=== PATIENT | male | born 2000 | race Caucasian/White ===

== ENCOUNTER 2019-11-14 18:28 | Emergency (ER) | payer OTHER ==
--- NOTE | 2019-11-14 18:54 | ED Physician Documentation ---
History of Present Illness - Stated complaint Stated Complaint: BODY ACHES/COUGH - Chief complaint Chief Complaint: Fever - Additonal information Additional information: This is a 19-year-old male who is otherwise healthy presents with, fever, body aches, and an episode of vomiting. He does not take any Tylenol or ibuprofen recently. He denies shortness of breath. After some retching and vomiting he did have a small amount of blood in his emesis, that was around 1 to 2 hours ago. He has not had any since. He denies abdominal pain. No hemoptysis. Review of Systems Constitutional: reports: Fever Respiratory: reports: Cough GI: reports: Vomiting. denies: Abdominal Pain Skin: denies: Rash PD PAST MEDICAL HISTORY - Past Medical History Past Medical History: Yes GI: GERD - Past Surgical History Past Surgical History: No - Present Medications Home Medications: Ambulatory Orders Medication Instructions Recorded Confirmed Benzonatate [Tessalon Perle] 100 - 200 mg PO TID PRN #30 capsule 11/14/19 Omeprazole 20 mg PO DAILY 11/14/19 11/14/19 Ondansetron Odt [Zofran] 4 mg TL Q6H PRN #10 tablet 11/14/19 - Allergies Allergies/Adverse Reactions: Allergies Allergy/AdvReac Type Severity Reaction Status Date / Time No Known Drug Allergies Allergy Verified 11/14/19 18:31 - Social History Does the pt smoke?: Yes Smoking Status: Current every day smoker Does the pt drink ETOH?: Yes Does the pt have substance abuse?: No - Immunizations Immunizations are current?: Yes PD ED PE NORMAL - General General: Other (Nontoxic-appearing) - HEENT HEENT: Atraumatic - Neck Neck: Supple, no meningeal sign - Cardiac Cardiac: Other (Tachycardic, regular rhythm) - Respiratory Respiratory: No respiratory distress, Clear bilaterally, Other (Intermittent cough) - Abdomen Abdomen: Soft, Non tender, Non distended - Extremities Extremities: No deformity - Neuro Neuro: Alert and oriented X 3 - Psych Psych: Normal mood, Normal affect Results - Vitals Vitals: Vital Signs - 24 hr 11/14/19 11/14/19 18:32 21:02 Temperature 38.4 C H 37.3 C Heart Rate 120 H 91 Respiratory 20 16 Rate Blood Pressure 121/84 H 117/72 O2 Saturation 98 96 Oxygen O2 Source Room air - Labs Labs: Laboratory Tests 11/14/19 11/14/19 11/14/19 18:40 20:14 20:14 WBC 6.6 RBC 5.29 Hgb 16.3 Hct 45.8 MCV 86.6 MCH 30.8 MCHC 35.6 RDW 11.6 L Plt Count 172 MPV 9.3 Neut # (Auto) 4.3 Lymph # (Auto) 0.8 L [place] # (Auto) 1.4 H Eos # (Auto) 0.0 Baso # (Auto) 0.0 Absolute Nucleated RBC 0.00 Nucleated RBC % 0.0 Sodium 137 Potassium 3.8 Chloride 96 L Carbon Dioxide 29 Anion Gap 12.0 BUN 12 Creatinine 1.0 Estimated GFR (MDRD) 95 Glucose 89 Lactic Acid Calcium 9.4 Total Bilirubin 1.3 H AST 22 ALT 33 Alkaline Phosphatase 53 Total Protein 7.9 Albumin 4.6 Globulin 3.3 Albumin/Globulin Ratio 1.4 Lipase 26 Influenza A (Rapid) Negative Influenza B (Rapid) Negative 11/14/19 20:14 WBC RBC Hgb Hct MCV MCH MCHC RDW Plt Count MPV Neut # (Auto) Lymph # (Auto) [place] # (Auto) Eos # (Auto) Baso # (Auto) Absolute Nucleated RBC Nucleated RBC % Sodium Potassium Chloride Carbon Dioxide Anion Gap BUN Creatinine Estimated GFR (MDRD) Glucose Lactic Acid 1.1 Calcium Total Bilirubin AST ALT Alkaline Phosphatase Total Protein Albumin Globulin Albumin/Globulin Ratio Lipase Influenza A (Rapid) Influenza B (Rapid) PD MEDICAL DECISION MAKING - ED course ED course: Patient arrives, he is febrile and tachycardic but he is nontoxic-appearing. His body aches, fever, cough are suggestive of influenza or another related viral illness. His lungs are clear, oxygen saturation is excellent, and he is not having chest pain, pneumonia is highly unlikely especially given his symptoms only present for 2 days. Influenza swabs are negative. His blood counts are unremarkable, and his electrolytes also are unremarkable. After liter of fluids, Zofran Tylenol and ibuprofen, patient is feeling better, his heart rate is in normal range, and his oxygen saturation remains excellent. His lactic acid was normal, and though he met SIRS criteria when he arrived this does appear to be a viral illness and not sepsis. He has a benign abdomen, no signs of more serious infection at this time. Regarding his blood in the vomit, this is probably a Samantha-Sawyer tear given that he had one isolated episode after multiple episodes of retching and vomiting. He has had no further vomiting or hematemesis. I discussed supportive care, prescribed him Zofran and Tessalon Perles, reviewed return precautions with any worsening, and reviewed primary care follow-up. Patient agreed and was discharged home Departure - Departure Disposition: 01 Home, Self Care Clinical Impression: Viral syndrome Condition: Good Instructions: ED Viral Syndrome Follow-Up: CORRINE DAVENPORT [Primary Care Provider] - Prescriptions: Benzonatate [Tessalon Perle] 100 - 200 mg PO TID PRN #30 capsule PRN Reason: Cough Ondansetron Odt [Zofran] 4 mg TL Q6H PRN #10 tablet PRN Reason: Nausea / Vomiting Comments: You appear to have an illness similar to the flu though your rapid flu test was negative today. Your labs are reassuring, please take Tylenol and ibuprofen for fever and pain, you may try the Tessalon Perles for cough and the Zofran for nausea. If you are having worsening symptoms such as persistent vomiting despite the Zofran, difficulty breathing, coughing up blood, or other concerning symptoms return to the emergency department. Discharge Date/Time: 11/14/19 21:04
[2019-11-14] MEDS ORDERED: ACETAMINOPHEN 500 MG TABLET PO STA (19:06)
[2019-11-14] MEDS ORDERED: ONDANSETRON ODT 4 MG TABLET TL STA (19:06)
[2019-11-14] MEDS ORDERED: IBUPROFEN 600 MG TABLET PO STA (19:06)
[2019-11-14] MEDS ORDERED: SODIUM CHLORIDE 0.9% 1,000 ML IV ONE (19:51)
[2019-11-14 20:21] LABS: BASOPHILS % (AUTO) 0.6 %; EOSINOPHILS % (AUTO) 0.5 %; HGB - HEMOGLOBIN 16.3 g/dL (14.0-18.0); LYMPHOCYTES # (AUTO) 0.8 10^3/uL (1.5-3.5); LYMPHOCYTES % (AUTO) 12.5 %; MEAN CORPUSCULAR HEMOGLOBIN 30.8 pg (27.0-31.0); MEAN CORPUSCULAR HGB CONC 35.6 g/dL (32.0-36.0); MEAN CORPUSCULAR VOLUME 86.6 fL (80.0-94.0); MEAN PLATELET VOLUME 9.3 fL (7.4-11.4); MONOCYTES # (AUTO) 1.4 10^3/uL (0.0-1.0); MONOCYTES % (AUTO) 20.6 %; NEUTROPHILS # (AUTO) 4.3 10^3/uL (1.5-6.6); NEUTROPHILS % (AUTO) 65.3 %; PLT - PLATELET COUNT 172 10^3/uL (130-450); RED BLOOD COUNT 5.29 10^6/uL (4.70-6.10); RED CELL DISTRIBUTION WIDTH 11.6 % (12.0-15.0); WHITE BLOOD COUNT 6.6 x10^3/uL (4.8-10.8)
[2019-11-14 20:33] LABS: ALBUMIN 4.6 g/dL (3.2-5.5); ALBUMIN/GLOBULIN RATIO 1.4 (1.0-2.2); BILIRUBIN,TOTAL 1.3 mg/dL (0.2-1.0); CALCIUM 9.4 mg/dL (8.5-10.3); TOTAL PROTEIN 7.9 g/dL (6.7-8.2)
[2019-11-14 21:02] VITALS: BP 117/72
== END 2019-11-14 21:04 | disposition home or self-care (01) ==
LOC: ED 18:28
DX: B34.9 Viral infection, unspecified (principal); K92.0 Hematemesis; F17.200 Nicotine dependence, unspecified, uncomplicated
CPT/HCPCS: 80053; 83605; 83690; 85025; 87275; 87276; 96360; 99283; A9270; Q0162; 36415

== ENCOUNTER 2019-11-17 08:41 | Emergency (ER) | payer OTHER ==
[2019-11-17] MEDS ORDERED: DEXAMETHASONE 10 MG/ML VIAL PO STA (10:10)
[2019-11-17] MEDS ORDERED: BENZONATATE 100 MG CAPSULE PO STA (10:10)
[2019-11-17] MEDS ORDERED: ONDANSETRON ODT 4 MG TABLET TL STA (10:10)
[2019-11-17] MEDS ORDERED: CHERRY SYRUP 10 ML UDC PO ONE (10:10)
--- NOTE | 2019-11-17 10:13 | ED Physician Documentation ---
PD HPI URI - Stated complaint Stated Complaint: COUGH/FEVER - Chief complaint Chief Complaint: General - History obtained from History obtained from: Patient - History of Present Illness Timing - onset: How many days ago (6) Timing duration: Days (6) Timing details: Abrupt onset, Still present Associated symptoms: Fever, Chills, Nasal congestion, Dry cough, NVD. No: Bilateral edema Contributing factors: Sick contact (was around others with flu.). No: Travel, Immunocompromised, COPD / asthma Improves by: Medication Worsened by: Activity Similar symptoms before: Has not had sx before Recently seen: Emergency Dept (seen for symptoms couple days ago and had Rx for meds that are working okay, but still ill and had work note for just 2 days off.) Review of Systems Constitutional: reports: Fever, Chills, Myalgias, Fatigue Nose: reports: Congestion. denies: Rhinorrhea / runny nose Throat: reports: Sore throat Respiratory: reports: Cough GI: reports: Nausea, Vomiting. denies: Abdominal Pain, Diarrhea Skin: denies: Rash, Lesions Neurologic: reports: Generalized weakness. denies: Near syncope PD PAST MEDICAL HISTORY - Past Medical History Cardiovascular: None Respiratory: None Neuro: None Endocrine/Autoimmune: None GI: GERD - Past Surgical History Past Surgical History: No - Present Medications Home Medications: Ambulatory Orders Medication Instructions Recorded Confirmed Benzonatate [Tessalon Perle] 100 - 200 mg PO TID PRN #30 capsule 11/14/19 Omeprazole 20 mg PO DAILY 11/14/19 11/14/19 Ondansetron Odt [Zofran] 4 mg TL Q6H PRN #10 tablet 11/14/19 - Allergies Allergies/Adverse Reactions: Allergies Allergy/AdvReac Type Severity Reaction Status Date / Time No Known Drug Allergies Allergy Verified 11/17/19 08:55 - Social History Does the pt smoke?: Yes Smoking Status: Current every day smoker Does the pt drink ETOH?: Yes Does the pt have substance abuse?: No - Immunizations Immunizations are current?: Yes PD ED PE NORMAL - Vitals Vital signs reviewed: Yes - General General: Alert and oriented X 3, No acute distress, Well developed/nourished - HEENT HEENT: Moist mucous membranes, Pharynx benign - Neck Neck: Supple, no meningeal sign, No adenopathy - Cardiac Cardiac: RRR, No murmur - Respiratory Respiratory: Clear bilaterally - Derm Derm: Normal color, Warm and dry - Neuro Neuro: Alert and oriented X 3, No motor deficit, Normal speech Results - Vitals Vitals: Vital Signs - 24 hr 11/17/19 11/17/19 08:51 10:18 Temperature 37.1 C Heart Rate 105 H 94 Respiratory 16 16 Rate Blood Pressure 122/68 126/73 O2 Saturation 98 95 Oxygen O2 Source Room air PD MEDICAL DECISION MAKING - ED course Complexity details: considered differential (still with symptoms of flu. had work note for 2 days, but has only been sick for 5 days, so presume still another 3 days or so to go on average. ), d/w patient Departure - Departure Disposition: Home, Self Care Clinical Impression: Influenza Condition: Stable Record reviewed to determine appropriate education?: Yes Instructions: ED Flu Follow-Up: CORRINE DAVENPORT [Primary Care Provider] - Comments: Stay well-hydrated. Tylenol or ibuprofen for fevers and pains. Use the prior prescriptions for ondansetron for nausea and benzonatate for cough. I would anticipate 7 or 8-day total illness given presumed influenza. Work note for another few more days. Forms: Activity restrictions Discharge Date/Time: 11/17/19 10:25
[2019-11-17 10:18] VITALS: BP 126/73
== END 2019-11-17 10:25 | disposition home or self-care (01) ==
LOC: ED 08:41
DX: J11.1 Influenza due to unidentified influenza virus with other respiratory manifestations (principal); J44.9 Chronic obstructive pulmonary disease, unspecified; F17.200 Nicotine dependence, unspecified, uncomplicated; K21.9 Gastro-esophageal reflux disease without esophagitis
CPT/HCPCS: 99282; 99284; A9270; Q0162

== ENCOUNTER 2021-08-29 10:18 | Outpatient (CLI) | payer OTHER ==
--- NOTE | 2021-09-05 10:04 | XRAY Report ---
PROCEDURE: Thoracic Spine 2 View INDICATIONS: THORACIC BACK PAIN TECHNIQUE: 2 views of the thoracic spine were acquired. COMPARISON: None. FINDINGS: Bones: No fractures or dislocations. No suspicious bony lesions. 12 pairs of ribs are noted, and a ppear intact where visualized. Soft tissues: No paravertebral stripe thickening. IMPRESSION: No acute subluxation or visible bony abnormality. Reviewed by: Radha Genao MD on 09/05/2021 10:03 AM PDT Approved by: Radha Genao MD on 09/05/2021 10:03 AM PDT Station ID: [id number]
== END 2021-08-29 23:59 | disposition home or self-care (01) ==
LOC: DI.N 10:18
PROVIDERS: ATTEND Nurse Practitioner
DX: M54.6 Pain in thoracic spine (principal)